=== PATIENT | female | born 1950 | race Caucasian/White ===

== ENCOUNTER → 2017-05-06 13:00 | Outpatient (CLI) | payer MEDICARE ==
[~2017-05-06 13:00] MED LIST: DEPO ESTRADIOL INJ; FISH OIL 1,0001 CA1 PO; HYDROCODONE-APA1 TAB PO; IBUPROFEN800 MG PO; LISINOPRIL-HCTZ1 T11 PO; PROTONIX40 MG PO; RESTORIL15 MG PO; ULTRAM50 MG PO; VITAMIN B-1000 MCG/M IM
[2017-05-11 06:17] VITALS: BMI 31.6
== END | disposition home or self-care (01) ==
LOC: D.MRI 13:00
DX: M54.9 Dorsalgia, unspecified (principal)

== ENCOUNTER 2017-05-11 05:20 | Day surgery (SDC) | payer MEDICARE ==
[2017-05-10 15:50] LABS: BASOPHILS 0.2 % (0-2); EOSINOPHILS 0.4 % (0-7); HEMATOCRIT 36.7 % (36.0-48.0); IMMATURE GRANULOCYTES 0.2 % (0-5); LYMPHOCYTES 20.9 % (15-50); MCH 29.5 pg (26.0-34.0); MCHC 32.7 g/dL (31.0-37.0); MCV 90.2 fL (80.0-100.0); MEAN PLATELET VOLUME 9.7 fL (7.4-10.4); MONOCYTES 4.9 % (2-11); NEUTROPHILS 73.4 % (40-80); PLATELET COUNT 328 10x3/uL (130-400); RBC 4.07 10x6/uL (4.00-5.40); RDW 15.4 % (11.5-14.5); WBC 10.6 10x3/uL (4.8-10.8)
[2017-05-10 15:57] LABS: APTT 25.8 SECONDS (22.8-39.4); INR 0.93 (0.85-1.17); PROTIME 12.1 SECONDS (11.6-15.0)
[2017-05-10 16:09] LABS: ANION GAP 10.4 mmol/L (8-16); CALCIUM 9.2 mg/dL (8.5-10.1); CARBON DIOXIDE 31.6 mmol/L (21.0-32.0); CREATININE - SERUM 0.9 mg/dL (0.6-1.3)
[~2017-05-11] VITALS: Ht 160 cm; Wt 80.7 kg
[2017-05-11 06:17] VITALS: BP 103/68; Ht 160 cm; Wt 80.7 kg
--- NOTE | 2017-05-11 08:04 | NUR ---
CALLED DR REDDING WITH NO ANSWER 0328, THEN FOUND IN ANESTHESIA LOUNGE CAME TO ROOM AT 0802, JOVANNA.
--- NOTE | 2017-05-11 11:21 | NUR ---
1110 SERVED FULL LIQUID DIET. Zita CORONEL R.N.
--- NOTE | 2017-05-11 11:46 | NUR ---
1132 TAKING FULL LIQUID DIET WITHOUT COMPLAINTS OF NAUSEA. NO EMESIS. 1 NORCO 10/325MG PO FOR COMPLAINTS OF POSTOP PAIN 10/31. Zita CORONEL R.N.
--- NOTE | 2017-05-11 13:00 | NUR ---
PT STATES PAIN CONTROLLED WITH RX. DENIES NEED TO VOID.
--- NOTE | 2017-05-11 13:30 | NUR ---
PT UP TO VOID. VOIDED WITHOUT DIFFICULTY. DOES REPORT NUMB SENSATION IN VAGINAL AREA. ADVISED WILL NOTIFY DR. REDDING.
--- NOTE | 2017-05-11 13:40 | NUR ---
IV D/C'D CATH INTACT.
--- NOTE | 2017-05-11 13:45 | NUR ---
SPOKE WITH DR. REDDING. HE REPORTS HE INJECTED MARCAINE IN BACK PRIOR TO CLOSING AND NUMBNESS DUE TO THAT. PT ADVISED. DR. REDDNIG REPORTS HE WILL BE BY TO SPEAK WITH PT.
--- NOTE | 2017-05-11 14:05 | NUR ---
DC INSTRUCTIONS EXPLAINED TO PT. VOICED UNDERSTANDING. COPIES OF ALL GIVEN TO PT.
--- NOTE | 2017-05-11 14:30 | NUR ---
DR. REDDING IN TO SPEAK WITH PT.
--- NOTE | 2017-05-11 14:35 | NUR ---
D/C'D HOME VIA W/C TO PRIVATE CAR.
--- NOTE | 2017-05-11 17:37 | OP ---
PATIENT NAME: ERNA CARPIO MEDICAL RECORD: [id number] :54 LOCATION:[facility] ADMISSION DATE: SURGEON: MICHAELA REDDING MD DATE OF OPERATION: 05/11/2017 PREOPERATIVE DIAGNOSES: Lumbar spinal stenosis L3-L4, right and left with foraminal stenosis L3-L4 bilaterally, severe. PROCEDURES: Lumbar laminotomy, medial facetectomy and foraminotomy at L3-L4 on the right with METRx retractor, sublaminar decompression of left L3-L4 with foraminotomies on both sides. DESCRIPTION AND TECHNIQUE: After induction of general endotracheal anesthesia, the patient was rolled prone on a Carlos Alberto frame. Lumbar spine was prepped and draped in usual sterile fashion. Fluoroscopic x-ray and spinal needle localized at L3-L4 interspace on the right side. A stab incision was created with #11 blade. A series of dilators was used to advance the METRx retractor to the L3-L4 interspace on the right side that was confirmed with fluoroscopic x-ray. A microscope and Midas Ang drill were used to perform a laminotomy, medial facetectomy and foraminotomy at L3-L4 on the right. Hypertrophied ligamentum flavum was removed with Cloward rongeurs. This decompressed at the L3 and L4 nerve roots and then METRx retractor was wanded to the opposite side. The spinous process was undermined with Midas Ang drill. Hypertrophied ligamentum flavum was removed with Cloward rongeurs. Foraminotomy was carried out on the left at L3-L4. Following this, the L3 and L4 nerve roots were decompressed well on both sides. Meticulous hemostasis was maintained throughout the wound. The wound was irrigated with copious amounts of Ancef irrigant solution. The fascia was closed with 2-0 Vicryl suture, the subdermal layer was closed with 3-0 Vicryl suture. The skin was closed with razia. A sterile dressing was applied to the wound. The patient was awakened in good condition. All counts were reported as correct. ESTIMATED BLOOD LOSS: Minimal. TRANSINT:[id number] Voice Confirmation ID: [id number] DOCUMENT ID: [id number] MICHAELA REDDING MD at 2326 CC: [id number] DICTATION DATE: 05/11/17 8929 AUTOMATIC SCREWMAKER: 05/11/17 1525 [facility] [place] 05/11/17 [facility] [address] [place] [address]
== END 2017-05-11 14:35 | disposition home or self-care (01) ==
LOC: D.OPS 05:20 → D.PAN 07:30 → D.OPS 14:35
PROVIDERS: Anesthesiology
DX: M48.061 Spinal stenosis, lumbar region without neurogenic claudication (principal); I10 Essential (primary) hypertension; K21.9 Gastro-esophageal reflux disease without esophagitis; Z01.812 Encounter for preprocedural laboratory examination

== ENCOUNTER → 2018-07-27 12:12 | Outpatient (CLI) | payer OTHER ==
[2017-05-11 06:17] VITALS: BMI 31.6
== END | disposition home or self-care (01) ==
LOC: D.US 12:12
PROVIDERS: ATTEND Nurse Practitioner
DX: E04.1 Nontoxic single thyroid nodule (principal)

== ENCOUNTER → 2018-12-30 08:09 | Outpatient (CLI) | payer OTHER ==
[2017-05-11 06:17] VITALS: BMI 31.6
--- NOTE | 2019-01-03 09:29 | EC ---
PATIENT:ERNA CARPIO DATE OF SERVICE: 12/30/18 SEX: F MEDICAL RECORD: [id number] DATE OF : 54 LOCATION:[facility] AGE OF PATIENT: 68 ADMISSION DATE: 12/30/18 REFERRING PHYSICIAN: INTERPRETING PHYSICIAN: IRINA YEBOAH MD ECHOCARDIOGRAM REPORT ECHO CHARGES 4 ECHO COMPLETE Date: 12/30/18 CLINICAL DIAGNOSIS: ANGINA/ABNORMAL EKG/MURMUR H/O HTN ECHOCARDIOGRAPHIC MEASUREMENTS (adult normal given) AC root (d.<3.7cm) 2.8 cm LV Septum d (<1.2 cm> 1.2 cm Valve Excursion 1.9 cm LV Septum (systole) 1.8 cm Left Atria (s.<4.0cm> 2.5 cm LVPW d(<1.2cm) 1.3 cm RV (d.<2.3cm) 2.3 cm LVPW (sytole) 1.8 cm LV diastole(<5.6CM) 4.9 cm MV E-F(>70mm/sec) cm LV systole 3.2 cm LVOT Diameter 1.5 cm MV exc.(>10mm) cm Est.ejection fraction (50-75%) % DOPPLER: LVIT cm/sec A 64.0 cm/sec E 101 cm/sec LA cm/sec RVSP 23.0 mmHg LVOT 125 cm/sec AOP1/2T m/s Asc. Ao 177 cm/sec RVOT 62.0 cm/sec RA cm/sec PA 108 cm/sec AV Gradient Peak 13.0 mmHg AV Mean 5.8 mmHg AV Area 1.3 cm MV Gradient Peak 3.7 mmHg MV Mean 1.3 mmHg MV Area cm COMMENTS: OP - HC Genetics Physician: Anabella GILLIS EARLE Fire Hydrant Mechanic: 3 Dr. Pathak TAPE# PACS Pericardial Effusion N DATE OF SERVICE: 12/30/2018 Adequate 2-D echo, color-flow and spectral Doppler, and M-mode. Borderline LVH. LV internal dimensions are normal. Wall motion is normal. EF is greater than or equal to 55%. Aortic valve is tricuspid. No evidence of stenosis by Doppler interrogation. Left atrium is normal at 3.5 cm. Mitral valve shows no prolapse. Trace MR. Right-sided chambers are grossly normal. Trace TR. ECHOCARDIOGRAM REPORT [id number] ERNA CARPIO TRANSINT:[id number] Voice Confirmation ID: [id number] DOCUMENT ID: [id number] IRINA YEBOAH MD at 0929 CC: [id number] DICTATION DATE: 01/02/19 1509 PACKING INSPECTOR: 01/02/19 1556 DEP CLI 12/30/18 [place] [id number] [place] [id number]
--- NOTE | 2019-01-10 12:04 | ST ---
PATIENT:ERNA CARPIO MEDICAL RECORD: [id number] SEX: F LOCATION:[facility] ORDER #: ADMISSION DATE: 12/30/18 AGE OF PATIENT: 68 REFERRING PHYSICIAN: INTERPRETING PHYSICIAN: ADRIENNE CARBAJAL MD DATE OF SERVICE: 12/30/2018 PROCEDURE: Nuclear stress test. INDICATION: Angina, abnormal ECG, hypertension, and hyperlipidemia. She was exercised on standard Lexiscan protocol with 33 mCi of sestamibi injected at peak stress, 11 mCi used previously for rest images. FINDINGS: Gated SPECT reveals preserved ejection fraction at 70% with good wall motion and thickening and brightening throughout all segments. SPECT imaging Cardiolite was used as myocardial fusion agent. There is homogeneous uptake throughout all segments at rest and stress with no evidence of inducible ischemia or previous infarction. OVERALL IMPRESSION: 1. This is a normal nuclear stress test with no evidence of inducible ischemia or previous infarction. 2. Gated SPECT reveals a preserved ejection fraction at 70%. In this patient with ongoing symptomatology, the current scan does not suggest the presence of hemodynamically significant coronary artery disease. Evaluate noncardiac etiology of chest pain. TRANSINT:[id number] Voice Confirmation ID: [id number] DOCUMENT ID: [id number] ADRIENNE CARBAJAL MD at 1204 CC: [id number] DICTATION DATE: 12/30/18 1501 ARTIFICIAL TEETH INSPECTOR: 12/30/18 2350 DEP CLI 12/30/18 [facility] [address] [place] [address]
== END | disposition home or self-care (01) ==
LOC: D.HCCARDIO 08:09
PROVIDERS: ATTEND Internal Medicine Interventional Cardiology
DX: R01.1 Cardiac murmur, unspecified (principal); I20.9 Angina pectoris, unspecified

== ENCOUNTER 2019-04-18 22:41 | Emergency (ER) | payer OTHER ==
[~2019-04-18] VITALS: Ht 160 cm; Wt 80.9 kg
[2019-04-18 22:53] VITALS: Ht 160 cm; Wt 80.9 kg
[2019-04-18 23:08] LABS: BASOPHILS 0.2 % (0-2); EOSINOPHILS 0.7 % (0-7); HEMATOCRIT 35.4 % (36.0-48.0); HEMOGLOBIN 11.5 g/dL (12-16); IMMATURE GRANULOCYTES 0.2 % (0-5); LYMPHOCYTES 26.5 % (15-50); MCH 28.5 pg (26.0-34.0); MCHC 32.5 g/dL (31.0-37.0); MCV 87.6 fL (80.0-100.0); MEAN PLATELET VOLUME 9.7 fL (7.4-10.4); MONOCYTES 8.3 % (2-11); NEUTROPHILS 64.1 % (40-80); PLATELET COUNT 316 10x3/uL (130-400); RBC 4.04 10x6/uL (4.00-5.40); RDW 16.6 % (11.5-14.5); WBC 10.3 10x3/uL (4.8-10.8)
[2019-04-18 23:20] LABS: APTT 26.1 SECONDS (22.8-39.4); CALC OSMOLALITY 283 mosm/kg (275-300); CALCIUM 9.2 mg/dL (8.5-10.1); CARBON DIOXIDE 24.1 mmol/L (21.0-32.0); CHLORIDE - SERUM 105 mmol/L (98-107); CREATININE - SERUM 1.5 mg/dL (0.6-1.3); GLUCOSE 114 mg/dL (74-106); INR 0.99 (0.85-1.17); POTASSIUM - SERUM 3.6 mmol/L (3.5-5.1); PROTIME 12.6 SECONDS (11.6-15.0); SODIUM 139 mmol/L (136-145); UREA NITROGEN 26 mg/dL (7-18); eGFR NON AFRICAN AMERICAN 37 mL/min (90-120)
[2019-04-18 23:34] LABS: ALBUMIN 3.6 g/dL (3.4-5.0); ALKALINE PHOSPHATASE 104 U/L (46-116); ALT (SGPT) 58 U/L (10-68); BILIRUBIN - TOTAL 0.34 mg/dL (0.2-1.3); CKMB 1.3 U/L (0.0-3.6); CREATINE KINASE 80 UL (21-215); MAGNESIUM - SERUM 1.7 mg/dL (1.8-2.4); PROTEIN - SERUM 7.5 g/dL (6.4-8.2)
[2019-04-18 23:35] LABS: TROPONIN-I < 0.017 ng/mL (0.000-0.060)
[2019-04-19] MEDS ORDERED: HYDROCODON-ACE1 EAC7 PO (00:07)
[2019-04-19 00:32] VITALS: BP 96/55
== END 2019-04-19 00:32 | disposition home or self-care (01) ==
LOC: D.ER 22:41
PROVIDERS: Emergency Medicine
DX: R07.89 Other chest pain (principal); E83.42 Hypomagnesemia; I10 Essential (primary) hypertension

== ENCOUNTER → 2019-07-19 13:02 | Outpatient (CLI) | payer OTHER ==
[2019-04-18 22:53] VITALS: BMI 31.6
[~2019-07-19 13:02] MED LIST changes: +HYDROCODON-ACE1 EAC7 PO
== END | disposition home or self-care (01) ==
LOC: D.CT 13:02
PROVIDERS: ATTEND Nurse Practitioner
DX: R91.8 Other nonspecific abnormal finding of lung field (principal)

== ENCOUNTER 2019-10-21 21:03 | Observation (INO) | payer OTHER ==
[~2019-10-21] VITALS: Ht 160 cm; Wt 85.3 kg
[2019-10-21] MEDS ORDERED: CYMBALTA20 MG PO (21:11)
[2019-10-21 21:25] VITALS: BP 138/80
[2019-10-21 21:25] LABS: BASOPHILS 0.3 % (0-2); HEMATOCRIT 37.3 % (36.0-48.0); IMMATURE GRANULOCYTES 0.1 % (0-5); LYMPHOCYTES 34.4 % (15-50); MCH 29.7 pg (26.0-34.0); MCHC 32.2 g/dL (31.0-37.0); MCV 92.3 fL (80.0-100.0); MEAN PLATELET VOLUME 9.2 fL (7.4-10.4); MONOCYTES 8.4 % (2-11); NEUTROPHILS 55.8 % (40-80); PLATELET COUNT 265 10x3/uL (130-400); RBC 4.04 10x6/uL (4.00-5.40); RDW 16.9 % (11.5-14.5); WBC 7.8 10x3/uL (4.8-10.8)
[2019-10-21 21:31] LABS: APTT 27.5 SECONDS (22.8-39.4); INR 0.91 (0.85-1.17); PROTIME 12.3 SECONDS (11.6-15.0)
[2019-10-21 21:36] LABS: CALC OSMOLALITY 279 mosm/kg (275-300); CALCIUM 9.2 mg/dL (8.5-10.1); CHLORIDE - SERUM 103 mmol/L (98-107); CREATININE - SERUM 1.1 mg/dL (0.6-1.3); GLUCOSE 100 mg/dL (74-106); POTASSIUM - SERUM 3.4 mmol/L (3.5-5.1); SODIUM 139 mmol/L (136-145); UREA NITROGEN 19 mg/dL (7-18); eGFR NON AFRICAN AMERICAN 52 mL/min (90-120)
[2019-10-21 21:46] LABS: ALBUMIN 3.5 g/dL (3.4-5.0); ALKALINE PHOSPHATASE 140 U/L (30-120); ALT (SGPT) 93 U/L (10-68); BILIRUBIN - TOTAL 0.34 mg/dL (0.2-1.3); CKMB 0.9 U/L (0.0-3.6); CREATINE KINASE 60 UL (21-215); MAGNESIUM - SERUM 1.9 mg/dL (1.8-2.4); PROTEIN - SERUM 7.2 g/dL (6.4-8.2); TROPONIN-I < 0.017 ng/mL (0.000-0.060)
--- NOTE | 2019-10-21 22:16 | NUR ---
PT GIVEN ZOFRAN FOR NAUSEA. ALSO GIVEN GI COCKTAIL PATIENT STATES HAS HELPE D BEFORE WITH HER ESOPHAGEAL SPASMS. PT IS WAITING ON CT SCAN.
--- NOTE | 2019-10-21 22:28 | NUR ---
PT STATES NO REAL RELIEF AFTER GI COCKTAIL.
--- NOTE | 2019-10-21 23:29 | NUR ---
PT TO CT.
--- NOTE | 2019-10-21 23:35 | NUR ---
PT TO CT. REPORT TO LES ON MED 2.
[2019-10-22 00:32] VITALS: BP 104/64; BMI 33.3
[2019-10-22 04:30] VITALS: BP 82/37
--- NOTE | 2019-10-22 06:13 | NUR ---
NO VOICED C/O OR CONCERNS. DENIES CHEST PAIN AT THIS TIME. ENCOURAGED CALL LIGHT FOR ASSIASTANCE WHEN GETTING UP. NO DISTRESS OBSERVED. CALL LIGHT IN REACH. WILL CPOC.
[2019-10-22 06:27] LABS: BASOPHILS 0 % (0-2); EOSINOPHILS 0 % (0-7); HEMATOCRIT 34.9 % (36.0-48.0); HEMOGLOBIN 11.2 g/dL (12-16); LYMPHOCYTES 10.4 % (15-50); MCH 29.5 pg (26.0-34.0); MCHC 32.1 g/dL (31.0-37.0); MCV 91.8 fL (80.0-100.0); MEAN PLATELET VOLUME 9.8 fL (7.4-10.4); MONOCYTES 1.1 % (2-11); NEUTROPHILS 88.5 % (40-80); PLATELET COUNT 278 10x3/uL (130-400); RDW 16.9 % (11.5-14.5); WBC 6.6 10x3/uL (4.8-10.8)
[2019-10-22 06:53] LABS: GLUCOSE 144 mg/dL (74-106)
[2019-10-22 06:54] LABS: ALBUMIN 3.3 g/dL (3.4-5.0); ALKALINE PHOSPHATASE 185 U/L (30-120); BILIRUBIN - TOTAL 0.21 mg/dL (0.2-1.3); CALC OSMOLALITY 283 mosm/kg (275-300); CALCIUM 8.9 mg/dL (8.5-10.1); CARBON DIOXIDE 28.6 mmol/L (21.0-32.0); CHLORIDE - SERUM 103 mmol/L (98-107); PROTEIN - SERUM 6.3 g/dL (6.4-8.2); SODIUM 139 mmol/L (136-145); TROPONIN-I < 0.017 ng/mL (0.000-0.060); UREA NITROGEN 22 mg/dL (7-18); eGFR NON AFRICAN AMERICAN 58 mL/min (90-120)
[2019-10-22 06:56] LABS: ALT (SGPT) 212 U/L (10-68); POTASSIUM - SERUM 4.5 mmol/L (3.5-5.1)
--- NOTE | 2019-10-22 07:09 | NUR ---
PT RESTING COMFORTABLY, LYING IN BED ON RIGHT SIDE. EYES CLOSED, BREATHS EVEN, REGULAR AND UNLABORED. NO SIGNS OR SYMTPOMS OF ACUTE DISTRESS NOTED AT THIS TIME. CL IN REACH SRX2
[2019-10-22 08:22] VITALS: BP 82/44
--- NOTE | 2019-10-22 08:50 | NUR ---
PT AWAKE AND ORIETNED, ASKING ABOUT POSSIBLE D/C TODAY SHE HAS NOT HAD ANY FURTHER CHEST PAIN AND ALL CARDIAC LABS HAVE BEEN NEGATIVE. HELD B/P MEDS D/T TO MULTIPLE LOW BLOOD PREASURES. CL IN REACH, SRX2. AT BEDSIDE.
[2019-10-22 12:17] VITALS: BP 116/68
--- NOTE | 2019-10-22 16:57 | NUR ---
PT HAS BEEN ALERT AND ORIENTED ALL DAY, C/O BACK PAIN OCCASIONALLY, PT STATES THIS IS CHRONIC. B/P IS STABLE NOW, 120'S/70S COMPARED TO EARLIES LOWER READINGS. NO COMPLAINTS OR CONCERNS AT THIS TIME. ALL QUESTIONS ANSWERED TO THE BSET OF MY ABILITY. CL IN REACH, SRX2.
--- NOTE | 2019-10-22 18:37 | NUR ---
I have reviewed this patient and I concur with the Shift Assessment completed by the Licensed Practical Nurse today this shift.
[2019-10-22 20:30] VITALS: BP 129/72
[2019-10-23 00:30] VITALS: BP 101/65
--- NOTE | 2019-10-23 02:20 | NUR ---
PT OUT IN HALLWAY SAYING HER ABDOMINAL PAIN IS WORSENING. SHE HAS HAD NORCO AND MORHPHINE WITH NO RELIEF. PAGE TO MARIA ELENA CORTES APN, REPORTED PT C/O GI PAIN. ORDER FOR GI COCKTAIL RECIEVED.
[2019-10-23 04:30] VITALS: BP 111/67
[2019-10-23 05:28] LABS: BASOPHILS 0.2 % (0-2); EOSINOPHILS 0.2 % (0-7); HEMATOCRIT 35.9 % (36.0-48.0); HEMOGLOBIN 11.5 g/dL (12-16); IMMATURE GRANULOCYTES 0.1 % (0-5); LYMPHOCYTES 19.4 % (15-50); MCH 29.3 pg (26.0-34.0); MCV 91.3 fL (80.0-100.0); MEAN PLATELET VOLUME 9.5 fL (7.4-10.4); MONOCYTES 11.9 % (2-11); NEUTROPHILS 68.2 % (40-80); PLATELET COUNT 264 10x3/uL (130-400); RBC 3.93 10x6/uL (4.00-5.40); RDW 16.7 % (11.5-14.5)
[2019-10-23 06:01] LABS: ALBUMIN 3.3 g/dL (3.4-5.0); BILIRUBIN - TOTAL 0.5 mg/dL (0.2-1.3); CALCIUM 8.7 mg/dL (8.5-10.1); CARBON DIOXIDE 28.4 mmol/L (21.0-32.0); CREATININE - SERUM 0.9 mg/dL (0.6-1.3); MAGNESIUM - SERUM 2.2 mg/dL (1.8-2.4); PROTEIN - SERUM 6.7 g/dL (6.4-8.2)
[2019-10-23 06:02] LABS: ANION GAP 9.9 mmol/L (8-16); POTASSIUM - SERUM 3.3 mmol/L (3.5-5.1)
--- NOTE | 2019-10-23 07:15 | NUR ---
RECEIVED PT IN BED AAOX4 RESP UNLABORED SKIN W/D COLOR WNL NAD NOTED AT THIS TIME DENIES ANY NEEDS OR DISCOMFORT
[2019-10-23 07:28] LABS: % SATURATION 14 % (15-55); IRON 54 ug/dl (35-150); TOTAL IRON BIND CAPACITY 377 ug/dl (260-445); UNSAT IRON BIND CAPACITY 323 ug/dl (150-375)
[2019-10-23 10:41] VITALS: BP 110/76
[2019-10-23 13:14] VITALS: BP 100/61
[2019-10-23 13:39] VITALS: Ht 160 cm; Wt 85.3 kg
[2019-10-23] MEDS ORDERED: LEVSIN/ANASP0.125 MG SL (15:55)
[2019-10-24 07:13] LABS: HEPATITIS C ANTIBODY 0.3 S/CO RAT (0.0-0.9)
[2019-10-24 11:09] LABS: ANA REFLEX - DIRECT Negative (Negative)
== END 2019-10-23 17:00 | disposition home or self-care (01) ==
LOC: D.ER 21:03 → D.M2 21:23 → OBSVTIME 21:23 → D.M2 21:23
PROVIDERS: Family Medicine; Internal Medicine Gastroenterology; ADMIT Family Medicine; ATTEND Family Medicine
DX: R07.9 Chest pain, unspecified (principal); I20.0 Unstable angina; D64.9 Anemia, unspecified; J18.9 Pneumonia, unspecified organism; M81.0 Age-related osteoporosis without current pathological fracture; G89.29 Other chronic pain; I10 Essential (primary) hypertension; K21.0 Gastro-esophageal reflux disease with esophagitis; Z98.84 Bariatric surgery status